=== PATIENT | male | born 1950 | race African-American/Black ===

== ENCOUNTER 2022-05-02 15:24 | Emergency (ER) | payer MEDICARE, OTHER ==
[~2022-05-02] VITALS: Ht 172.7 cm; Wt 70.0 kg
[2022-05-02] MEDS ORDERED: DILTIAZEM HCL 5MG/ML 5ML VIAL IV ONE (15:30)
[2022-05-02] MEDS ORDERED: ADENOSINE 3 MG/ML 2ML VIAL IV ONE ×2 (15:30)
[2022-05-02 15:46] LABS: BASOPHILS % 0.3 % (0.0-2.0); EOSINOPHILS % 0.3 % (0.0-5.0); HEMATOCRIT. 44.6 % (42.0-52.0); HEMOGLOBIN. 14.8 g/dL (14.0-18.0); LYMPHOCYTES % 11.7 % (20.0-50.0); MEAN CORPUSCULAR HEMOGLOBIN 27.1 pg (28.0-32.0); MEAN CORPUSCULAR VOLUME 81.5 fL (80.0-94.0); MEAN PLATELET VOLUME 10.5 fl (7.4-10.4); MONOCYTES % 7.6 % (2.0-8.0); NEUTROPHILS % 80.1 % (40.0-76.0); PLATELET 188 x1000/uL (130-400); RED BLOOD CELL COUNT 5.47 mill/uL (4.7-6.1); RED CELL DISTRIBUTION WIDTH 15.1 % (11.6-14.6)
[2022-05-02 15:52] LABS: CHLORIDE 106 mEq/L (98-107)
[2022-05-02 15:59] LABS: ETHANOL BLOOD < 10 mg/dL
[2022-05-02 16:29] LABS: CLARITY URINE CLEAR (CLEAR); COLOR URINE YELLOW (YELLOW); KETONES URINE TRACE (NEGATIVE); LEUKOCYTE ESTERASE URINE NEGATIVE (NEGATIVE); NITRITE URINE NEGATIVE (NEGATIVE); OCCULT BLOOD URINE TRACE (NEGATIVE); PH URINE 7.5 (4.5-8.0); PROTEIN URINE 2+ (NEGATIVE); SPECIFIC GRAVITY URINE 1.019 (1.005-1.030); UROBILINOGEN URINE 0.2 E.U./dL (0.2-1.0)
[2022-05-02 16:46] LABS: *AMPHETAMINES SCREEN URINE NEGATIVE (NEGATIVE); *BARBITURATES SCREEN URINE NEGATIVE (NEGATIVE); *BENZODIAZEPINES SCREEN URINE NEGATIVE (NEGATIVE); *COCAINE SCREEN URINE NEGATIVE (NEGATIVE); CANNABINOID URINE SCREEN NEGATIVE (NEGATIVE); METHADONE URINE SCREEN NEGATIVE (NEGATIVE); OPIATES URINE SCREEN NEGATIVE (NEGATIVE); PHENCYCLIDINE URINE SCREEN NEGATIVE (NEGATIVE)
[2022-05-02] MEDS ORDERED: IOHEXOL-350 100 ML BOTTLE ONE (17:16)
[2022-05-02] MEDS ORDERED: CLOPIDOGREL 75MG TABLET PO ONE (18:00)
[2022-05-02] MEDS ORDERED: ASPIRIN 81MG TABLET PO ONE (18:00)
[2022-05-02] MEDS ORDERED: ATORVASTATIN CALCIUM 40MG TABLET PO SCH (18:00)
[2022-05-02] MEDS ORDERED: ASPIRIN 81MG TABLET PO SCH (19:45)
[2022-05-02] MEDS ORDERED: CLOPIDOGREL 75MG TABLET PO SCH (19:45)
[2022-05-02 22:00] VITALS: BP 125/101
== END 2022-05-02 23:00 | disposition short-term general hospital (02) ==
LOC: ER 15:24
DX: R53.1 Weakness (principal); R29.810 Facial weakness; R20.0 Anesthesia of skin; R27.0 Ataxia, unspecified; I10 Essential (primary) hypertension
CPT/HCPCS: 36415; 70450; 70496; 70498; 71045; 80053; 80305; 80320; 81003; 82962; 85025; 93005; 99291; Q9967; J0153; G0480